=== PATIENT | female | born 1950 | race Caucasian/White ===

== ENCOUNTER → 2016-09-06 | Outpatient (CLI) | payer MEDICARE ==
--- NOTE | 2016-09-06 13:33 | CT ---
EXAMINATION TYPE: CT abdomen pelvis w con DATE OF EXAM: 09/06/2016 12:32 PM COMPARISON: 10/18/2012 HISTORY: 66-year-old female with LLQ abdominal tenderness TECHNIQUE: Contiguous axial scanning of the abdomen and pelvis following administration of 100 ml Omn ipaque 300 IV contrast. Delayed images through the kidneys and coronal/sagittal reconstructions perf ormed. CT DLP: 960.10 mGycm Automated exposure control for dose reduction was used. FINDINGS: Heart is upper limits of normal in size without pericardial effusion. There is some emphysematous zabrina nge and some scattered groundglass in the visualized lower lungs probably product of small airways di sease. No focal liver lesion or biliary ductal dilatation. Portal venous system is patent. Cholecystectomy clips are present. Adrenal glands, right kidney, and atrophic pancreas show no gross anomaly. There are calcified granul omas in spleen and a tiny inferior splenule. There is a nonenhancing hypodense lesion lower pole left kidney measuring 2.7 cm compatible with a cy st that shows interval enlargement from 2013 where it measured 1.7 cm. Moderate to severe atherosclerotic plaque within the upper to mid abdominal aorta. Both celiac axis a nd SMA origins appear to be patent. There is mild ectasia of the infrarenal abdominal aorta 2.7 cm. No dilated small bowel, free fluid, or free air. No mesenteric or retroperitoneal lymphadenopathy. Oral contrast has progressed to the transverse colon. There is colonic diverticulosis with some loss of the haustral markings along the left hemicolon extending from the distal third transverse down to the distal sigmoid. This segment shows mild circumferential wall thickening with more moderate wall t hickening and associated pericolonic fat stranding along the proximal to mid sigmoid. At the proximal sigmoid, coronal image 49 and axial image 70, there is apparent shouldering which could represent an annular lesion. There may also be some intramural air in the proximal sigmoid, for example, axial im age 63. Bladder is nondistended. Uterus and small ovaries are visualized. No abnormal fluid collection in the pelvis or pelvic lymphadenopathy seen. Bones: Degenerative changes of the hips and lower lumbar spine. No osseous destructive process. IMPRESSION: 1. DIFFUSE LEFT HEMICOLONIC COLITIS (INFECTIOUS, INFLAMMATORY, OR ISCHEMIC) WITH MORE MODERATE INFLAM MATION ALONG THE PROXIMAL TO MID SIGMOID. SMALL AMOUNT OF PNEUMATOSIS IS DIFFICULT TO EXCLUDE, AXIAL IMAGE 63, THINK CAN BE SEEN IN THE SETTING OF ISCHEMIC BOWEL. NO ABSCESS OR FREE AIR. 2. POSSIBLE SHOULDERING AT THE PROXIMAL SIGMOID COLON WELL COULD REPRESENT AN ANNULAR NEOPLASM. RE COMMEND DIRECT VISUALIZATION. 3. WHILE THERE IS MILD COLONIC DIVERTICULOSIS, NO DISCRETE INFLAMED DIVERTICULUM IS SEEN. An [facility] message has been communicated to Keya Alvarenga DO via the [facility] system on 09/06/2016 1:29 PM, Message ID [phone].
== END | disposition home or self-care (01) ==
LOC: RADCTMAIN 11:54
PROVIDERS: ATTEND Family Medicine
DX: K52.9 Noninfective gastroenteritis and colitis, unspecified (principal); K57.30 Diverticulosis of large intestine without perforation or abscess without bleeding
CPT/HCPCS: 74177; Q9967

== ENCOUNTER 2016-10-04 10:22 | Day surgery (SDC) | payer MEDICARE ==
[2016-09-29 10:04] VITALS: BMI 35.2
[~2016-10-04 10:22] MED LIST: LACTATED RINGERS 1,000 ML IV SCH
[2016-10-04 11:44] VITALS: TEMP 97
[2016-10-04] MEDS ORDERED: LIDOCAINE 1% 20 ML VIAL (10MG/ML) FOR IV START INTRADERMA ONE (11:46)
[2016-10-04] MEDS ORDERED: PROPOFOL 10 MG/ML 20 ML VIAL IV ONE (12:41)
[2016-10-04] MEDS ORDERED: LIDOCAINE 1% INJ 10MG/ML (20 ML MDV) ONE (12:41)
[2016-10-04 13:09] VITALS: BP 119/69; RESP 16
--- NOTE | 2016-10-04 13:17 | P.PCN ---
Date of Procedure: 10/04/16 Procedure(s) Performed: Procedure: Colonoscopy and biopsy. Preoperative diagnosis: Left lower quadrant abdominal pain and abnormal CT of the abdomen. Postoperative diagnosis: 1. Diverticulosis with redundancy of the folds in the sigmoid with scattered submucosal hemorrhages raising the possibility of prior bout(s) of diverticulitis. 2. Biopsies obtained. 3. No strictures noted. 4. No polyps or cancer. Preparation: HalfLytely prep. Sedation: Was provided by anesthesia. Brief clinical history: The patient is a 66-year-old female who is referred for this evaluation because of ongoing issues with left lower quadrant abdominal pain. This has been going on for 3-4 years but has been more severe in the last 3 months. On 09/06/2016, CT of the abdomen and pelvis showed diffuse left sarah-colonic colitis and there was some shouldering of the mucosa in the sigmoid raising the possibility of neoplasm. She had a prior colonoscopy more than 5 years ago and that showed diverticulosis. The patient describes her stools to be pasty but no diarrhea, constipation or bleeding. Procedure: With the patient on her left lateral decubitus position and after informed consent and adequate sedation, the perianal area was inspected and it did not show any fissures or fistulas. There were no masses felt on digital rectal examination. The Olympus CFQ 160L video colonoscope was then inserted in the rectum in the usual fashion and advanced to the cecum. I intubated the ileocecal valve and examined the terminal ileum. There was multiple diverticular orifices seen mostly on the left side and sigmoid occasional small one around the hepatic flexure and on the right side. In the sigmoid, the folds were redundant almost taking the shape of floppy polyps with areas of submucosal hemorrhage raising the possibility of prior bouts of diverticulitis. These changes were interspersed between normal looking mucosa. No polyps or tumors were seen or any strictures. Otherwise, exam of the colon and terminal ileum did not reveal any additional findings. I obtained biopsies in the sigmoid and I retroflexed endoscope in the rectum before the endoscope was withdrawn. The patient tolerated the procedure well. Plan: The patient was reassured. Will await biopsy results. Further plans can be made based on her course and biopsy results.
[2016-10-04 13:39] VITALS: PULSE 72
== END 2016-10-04 13:49 | disposition home or self-care (01) ==
LOC: ORWHC2ENDO 10:22
DX: K52.9 Noninfective gastroenteritis and colitis, unspecified (principal); K57.31 Diverticulosis of large intestine without perforation or abscess with bleeding; I10 Essential (primary) hypertension; Z79.899 Other long term (current) drug therapy
CPT/HCPCS: 45380; 88305; J2001; J2704; 99153